=== PATIENT | male | born 1945 ===

== ENCOUNTER 2017-12-30 09:15 | Day surgery (SDC) | payer MEDICARE ==
[2017-12-30] MEDS ORDERED: Propofol 10 mg/ml Inj (20 ML) ONE (11:43)
[2017-12-30] MEDS ORDERED: Midazolam 2 MG/2 ML VIAL ONE (11:43)
[2017-12-30 12:23] VITALS: TEMP 97.3
[2017-12-30 12:54] VITALS: O2SAT 98
[2017-12-30 13:09] VITALS: BP 122/55; PULSE 58; RESP 13
== END 2017-12-30 13:10 | disposition home or self-care (01) ==
LOC: C.ENDO 09:15
PROVIDERS: ATTEND Internal Medicine Gastroenterology
DX: Z12.11 Encounter for screening for malignant neoplasm of colon (principal); D12.2 Benign neoplasm of ascending colon; D12.4 Benign neoplasm of descending colon; K64.8 Other hemorrhoids
CPT/HCPCS: 45385; 88305; J2250; J2704